=== PATIENT | male | born 1960 | race Caucasian/White ===

== ENCOUNTER 2019-06-26 05:49 | Observation (INO) ==
--- NOTE | 2019-06-25 11:19 | Anesthesiology Consultation ---
Date of Service June 25, 2019 Assessment & Plan (1) Encounter for pre-operative examination: Chart Review Chart Review: Pending: Refer to Additional Notes / Consult section and Patient NOT seen in Pre Admission Testing awaiting results of outside lab testing Consults Requested none History Surgery Operation Date: 06/26/19 07:45 Proposed Procedures p C6-C7 Anterior Cervical Discectomy and Fusion, C5 Corpectomy, Spinal Cord Monitoring - Ricardo Alba, Height/Weight Height: 5 ft 10 in Weight: 83.461 kg Allergies Allergy/AdvReac Type Severity Reaction Status Date / Time No Known Allergies Allergy Verified 06/25/19 08:14 Medications Home Medications Medication Instructions Recorded Confirmed Last Taken aspirin 81 mg PO DAILY 06/25/19 06/25/19 Unknown atorvastatin 20 mg PO HS 06/25/19 06/25/19 Unknown empagliflozin [Jardiance] 10 mg PO DAILY 06/25/19 06/25/19 Unknown insulin detemir U-100 [Levemir 62 unit SUBCUT DAILY 06/25/19 06/25/19 Unknown U-100 Insulin] lisinopril 10 mg PO DAILY 06/25/19 06/25/19 Unknown semaglutide [Ozempic] 0.5 mg SUBCUT WK 06/25/19 06/25/19 Unknown Past Medical History Medical History Diabetes mellitus, type 2 Herniated disc, cervical Hyperlipidemia Hypertension Osteoarthritis Past Family History Family History Grandmother (Maternal) Family history of diabetes mellitus Past Surgical History Surgical History History of herniorrhaphy History of repair of rotator cuff LEFT History of shoulder surgery LEFT STOP BANG Total 3 Social History Smoking Status: Never smoker tobacco type: smokeless tobacco Do You Dip or Chew Tobacco: Yes Hx Alcohol Use: No Hx Substance Use: No substance use type: does not use Testing Electrocardiogram Date: 05/07/19 Findings: + NSR @ (72) inc rbbb Chest X-Ray Date: 05/07/19 Findings: + NAD
[2019-06-26] MEDS ORDERED: CEFAZOLIN 2000MG 2,000 MG/15 ML SYR IV SCH (06:00)
[2019-06-26] MEDS ORDERED: LR 15ML/HR IV SCH (06:00)
[2019-06-26] MEDS ORDERED: GABAPENTIN 600 MG DOSE PO SCH (06:00)
[2019-06-26] MEDS ORDERED: ACETAMINOPHEN 500 MG TAB PO SCH (06:00)
[2019-06-26] MEDS ORDERED: CeleBREX 200 MG CAP PO SCH (06:00)
[2019-06-26] MEDS ORDERED: MIDAZOLAM HCL 1 MG/ML 2ML VIAL ONE (06:44)
[2019-06-26] MEDS ORDERED: HYDROmorphone INJ 2 MG/ML SYR/VIAL ONE ×2 (06:44→08:45)
[2019-06-26] MEDS ORDERED: fentaNYL citrate 100 MCG/2 ML VIAL ONE ×6 (06:44→09:57)
[2019-06-26] MEDS ORDERED: PROPOFOL IV EMULSION 10 MG/ML 100 ML VIAL IV ONE ×2 (06:54→09:25)
[2019-06-26] MEDS ORDERED: BACITRACIN INJ 50,000 UNIT VIAL ONE (07:04)
[2019-06-26] MEDS ORDERED: ATROPINE SULFATE 0.1 MG/ML 10ML SYR IV PRN (07:14)
[2019-06-26] MEDS ORDERED: ePHEDrine sulfate 50 MG/ML AMP IV PRN (07:14)
[2019-06-26] MEDS ORDERED: ONDANSETRON INJ 2 MG/ML 2 ML VIAL IV PRN ×2 (07:14→11:35)
--- NOTE | 2019-06-26 07:30 | History & Physical Bridge Note ---
Date of Service June 26, 2019 History & Physical Bridge Note I have examined the patient, reviewed the History & Physical and in the interval since the performance of the History & Physical I have noted the following changes of clinical significance: no changes noted
--- NOTE | 2019-06-26 07:31 | History & Physical Report ---
Date of Service June 26, 2019 Assessment & Plan (1) Cervical stenosis of spinal canal: Anterior cervical discectomy and fusion C6-7 corpectomy C5 Present on Admission?: Yes History of Present Illness Chief Complaint: Neck and arm pain Primary Care Provider: Sonam Miller DO This is a 59-year-old male who presents with chronic persistent neck and arm pain. After failing extensive course of nonoperative care is here for surgical intervention. Allergies Allergy/AdvReac Type Severity Reaction Status Date / Time No Known Allergies Allergy Verified 06/26/19 06:13 Home Medications Home Medications Medication Instructions Recorded Confirmed Type aspirin 81 mg PO DAILY 06/25/19 06/26/19 History atorvastatin 20 mg PO HS 06/25/19 06/26/19 History empagliflozin [Jardiance] 10 mg PO DAILY 06/25/19 06/26/19 History insulin detemir U-100 [Levemir 62 unit SUBCUT DAILY 06/25/19 06/26/19 History U-100 Insulin] lisinopril 10 mg PO DAILY 06/25/19 06/26/19 History semaglutide [Ozempic] 0.5 mg SUBCUT WK 06/25/19 06/26/19 History Past Med/Surg History Medical History Diabetes mellitus, type 2 Herniated disc, cervical Hyperlipidemia Hypertension Osteoarthritis Surgical History History of herniorrhaphy History of repair of rotator cuff LEFT History of shoulder surgery LEFT Family History Grandmother (Maternal) Family history of diabetes mellitus Social History Preferred Language: Telugu Communication Ability: Effective Hearing Examiner Required: No Beliefs That Will Affect Care: None Current Living Situation: Spouse Other Information That Helps Us Care for You: No Feels Safe at Home: Yes Safety Concerns: Feels Safe At This Time Smoking Status: Never smoker Tobacco Type: smokeless tobacco ; Do You Dip or Chew Tobacco: Yes ; Second Hand Exposure: No ; Tobacco Cessation Education Requested by Patient: No Hx Alcohol Use: No Hx Substance Use: No Physical Exam Physical Exam: Patient is alert and oriented neurologically intact. Results & Data Vital Signs (Past 12 Hours) Vital Signs Temp Pulse Resp BP Pulse Ox 06/26/19 06:24 36.5 C 83 20 148/86 H 97
[2019-06-26] MEDS ORDERED: SODIUM CHLORIDE 0.9% INJ 10 ML VIAL ONE (08:19)
[2019-06-26] MEDS ORDERED: NEOSTIGMINE METHYLSULFATE 1 MG/ML 10ML VIAL ONE (08:47)
[2019-06-26] MEDS ORDERED: PROPOFOL IV EMULSION 10 MG/ML 20 ML VIAL IV ONE (08:47)
[2019-06-26] MEDS ORDERED: ONDANSETRON INJ 2 MG/ML 2 ML VIAL ONE (08:47)
[2019-06-26] MEDS ORDERED: PHENYLEPHRINE 100MCG/ML 5ML SYR ONE (08:47)
[2019-06-26] MEDS ORDERED: METOCLOPRAMIDE HCL INJ 5 MG/ML 2 ML VIAL ONE (08:47)
[2019-06-26] MEDS ORDERED: LIDOCAINE HCL 2% 2 ML VIAL/AMP(20MG/ML) INFIL ONE (08:47)
[2019-06-26] MEDS ORDERED: DEXAMETHASONE SOD INJ 4 MG/ML VIAL ONE (08:47)
[2019-06-26] MEDS ORDERED: GLYCOPYRROLATE 0.2 MG/ML VIAL ONE (08:47)
[2019-06-26] MEDS ORDERED: ROCURONIUM BROMIDE 10 MG/ML 5 ML VIAL ONE ×3 (08:47→09:32)
[2019-06-26] MEDS ORDERED: ePHEDrine sulfate 50 MG/ML SYR ONE (09:47)
[2019-06-26] MEDS ORDERED: FLOSEAL HEMOSTATIC MATRIX 5ML TOP ONE (09:52)
--- NOTE | 2019-06-26 09:57 | Operative Report ---
Post Operative Report Pre & Post Diagnosis Operation Date: 06/26/19 07:45 Pre-Op Diagnosis: Cervical spinal stenosis with myeloradiculopathy Post-Op Diagnosis: Same I identified the patient and participated in the time-out.: Yes Procedure Operation Date: 06/26/19 07:45 Actual Procedures #1 anterior cervical corpectomy with bilateral foraminotomies C5. #2 anterior cervical arthrodesis C6-C7. #3 anterior cervical arthrodesis C4-C6 and C6-C7. #4 placement of peek cage 23 mm in height at C4-C6. 8 mm in height at C6-C7. #5 placement locally harvested morselized autograft from combined with DBM and interbody cages. #6 placement of caldwell plate and screws from C4-C7. Surgeon Ricardo Alba, Line Rider Nadia Valenzuela Estimated Blood Loss 20 Findings Consistent with Post-Op Diagnosis Specimens None Indications This is a 59-year-old male who presents with above-mentioned diagnosis after failing course of nonoperative care is here for surgical intervention. Description of Procedure Patient was met with identified and informed consent obtained. Patient was then taken to the operative suite underwent intubation placed in a prone position the Asad table on top of the Ethan frame. All bony prominences well-padded eyes inspected to ensure no external pressure placed upon the peer at this point the anterior cervical spine was prepped and draped in normal sterile fashion. The assistance of fluoroscopy identified the C5-6 disc space and a transverse incision was placed along the right anterior aspect of the cervical spine overlying this region. Sharp dissection with the assistance of bipolar electrocautery performed on January exposing the anterior cervical spine from C4- C7. Self-retaining retractor was then placed. Then performed a complete discectomy of C4-5 out to the uncovertebral joints bilaterally followed by C5-6. [place] distracting pins were then placed in C4 and C6 to distract across the see 5 vertebral body. A complete corpectomy was then performed including removal of all posterior annular fibers longitudinal ligament bilateral foraminotomies. Endplates were then burred to subcortical bleeding bone and a 23 mm peek cage filled with locally harvested morselized autograft and DBM tapped in position. Then proceeded to C6-7. Again complete discectomy performed out to the uncovertebral joints bilaterally. [place] distracting pins again utilized. I removed all posterior annular fibers longitudinal ligament bilateral foraminotomies performed. Endplates then burred to subcortical bleeding bone and an 8 mm peek cage filled with locally harvested bone graft and DBM tapped in position. Distraction apparatus was removed all anterior osteophytes burred with smooth cortical surface and a caldwell plate and screws applied with the assistance of fluoroscopy. The incision was then copiously irrigated explored to ensure no damage to surrounding structures remaining bleeding. A 15 round AILYN drain inserted. The incision was then closed with 1 Vicryl in the fascia 2-0 Vicryl subcutaneous and 4 Monocryl for final skin closure. Steri-Strip sterile dressings placed. Patient awakened taken to PACU stable condition. Please note Nadia Valenzuela present throughout the entire procedure involved the patient positioning complex portions of the surgery and final skin closure. Lastly spinal cord monitoring was utilized that procedure no changes noted. I attest to the content of the Intraoperative Record and any orders documented therein. Any exceptions are noted below.
[2019-06-26] MEDS: fentaNYL citrate 100 MCG/2 ML VIAL IV PRN ×3 (10:37→10:47)
--- NOTE | 2019-06-26 10:45 | Anesthesiology Progress Note ---
Date of Service June 26, 2019 Anesthesia Post Procedure Vital Signs Vital Signs: Temp Pulse Pulse Resp BP Pulse Ox 06/26/19 10:40 79 17 117/71 99 06/26/19 10:30 76 12 112/71 98 06/26/19 10:20 82 16 109/68 99 06/26/19 10:10 36.1 C L 84 12 113/69 100 06/26/19 06:24 36.5 C 83 20 148/86 H 97 Pain Intensity Neck: Pain Intensity: 6 Transfer of Care Handoff Completed per policy Notes Mental Status: alert / awake / arousable and participated in evaluation Patient Amnestic to Procedure: Yes Nausea / Vomiting: adequately controlled Pain: adequately controlled Airway Patency, RR, SpO2: stable & adequate BP & HR: stable & adequate Hydration State: stable & adequate Anesthetic Complications: no major complications apparent and Pt Satisfied with anesthetic care
[2019-06-26] MEDS ORDERED: TRAMADOL HCL 50 MG TABLET PO PRN (11:35)
[2019-06-26] MEDS ORDERED: METOCLOPRAMIDE HCL INJ 5 MG/ML 2 ML VIAL IV PRN (11:35)
[2019-06-26] MEDS ORDERED: LORazepam 0.5 MG/1 ML VIAL IV PRN (11:35)
[2019-06-26] MEDS ORDERED: OXYCODONE HCL IR 5 MG TAB (IMMEDIATE RELEASE) PO PRN (11:35)
[2019-06-26] MEDS ORDERED: MAGNESIUM HYDROXIDE SUSP 30 ML UDC PO PRN (11:35)
[2019-06-26] MEDS ORDERED: LORazepam 0.5 MG TAB PO PRN (11:35)
[2019-06-26] MEDS ORDERED: FAMOTIDINE 20 MG TAB PO PRN (11:35)
[2019-06-26] MEDS ORDERED: SOD PHOSPHATE/SOD BIPHOSPHATE ENEMA 132 ML BTL PR PRN (11:35)
[2019-06-26] MEDS ORDERED: DO NOT ADMINISTER FLU VACCINE PRN (11:35)
[2019-06-26] MEDS ORDERED: HYDROmorphone INJ 1 MG/ML SYRINGE IV PRN (11:35)
[2019-06-26] MEDS ORDERED: PROMETHAZINE HCL 12.5 MG in SODIUM CHLORIDE 0.9% 50 ML IV PRN (11:35)
[2019-06-26] MEDS ORDERED: DO NOT ADMINISTER PNEUMOCOCCAL VACCINE PRN (11:35)
[2019-06-26] MEDS ORDERED: NALOXONE HCL 0.4 MG/1 ML VIAL/CARP IV PRN (11:35)
[2019-06-26] MEDS ORDERED: NON-FORMULARY MEDICATION (Semaglutide [Ozempic] 0.5 MG) SQ SCH (11:35)
[2019-06-26] MEDS ORDERED: HYDROmorphone INJ 0.5 MG/0.5 ML SYR IV PRN (11:35)
[2019-06-26] MEDS ORDERED: ALUMINUM/MAGNESIUM SUSP 30 ML UDC PO PRN (11:35)
[2019-06-26] MEDS ORDERED: ONDANSETRON 4 MG OD TAB PO PRN (11:35)
[2019-06-26] MEDS ORDERED: RACEPINEPHRINE 2.25% NEBU SOLN 0.5 ML VIAL INH PRN (11:35)
[2019-06-26] MEDS ORDERED: ACETAMINOPHEN 500 MG TAB PO PRN (11:35)
[2019-06-26] MEDS ORDERED: ACETAMINOPHEN 1,000 MG/100 ML VIAL IV PRN (11:35)
[2019-06-26] MEDS ORDERED: DEXAMETHASONE SOD PHOSPHATE 8 MG in SYRINGE 0 ML IV PRN (11:35)
--- NOTE | 2019-06-26 11:37 | Fluoroscopy Report ---
FL cervical 2-3V CLINICAL HISTORY: ACDF C6-C7 CORPECTOMY C5 COMPARISON STUDY: None FLUOROSCOPY TIME: 11 seconds. NUMBER OF FLUOROSCOPIC IMAGES: 3 FINDINGS: Intraoperative fluoroscopic spot images reveal postsurgical changes of a C5 corpectomy, and C6-7 discectomy and interbody fusion. There is anterior metallic plate with screws at the C4, C6 and C7 levels. IMPRESSION: Intraoperative fluoroscopic spot images obtained during a C5 corpectomy and anterior cer vical discectomy and fusion at the C6-7 level. Electronically signed by: Brodie Higgins M.D. 06/26/2019 11:36 AM
[2019-06-26] MEDS ORDERED: PHARMACY GLYCEMIC MGMT CONSULT PRN (12:14)
[2019-06-26] MEDS ORDERED: INSULIN DETEMIR FLEXPEN/FLEX TOUCH 100 UNITS/ML 3ML SC ONE ×2 (12:30→21:00)
[2019-06-26] MEDS ORDERED: DEXTROSE 50% 50 ML SYRINGE IV PRN (12:30)
[2019-06-26] MEDS ORDERED: GLUCOSE 40% GEL 15 GM TUBE PO PRN (12:30)
[2019-06-26] MEDS ORDERED: GLUCOSE 10 TABS/TUBE PO PRN (12:30)
[2019-06-26] MEDS ORDERED: GLUCAGON FOR INJ 1 MG VIAL IM PRN (12:30)
[2019-06-26] MEDS: SODIUM CHLORIDE 0.9% 1000ML 1,000 ML IV SCH ×2 (12:39→21:24)
[2019-06-26] MEDS: INSULIN ASPART 100 UNITS/ML 3 ML PEN SC SCH ×3 (14:14→21:17)
--- NOTE | 2019-06-26 15:24 | Pharmacy Report ---
Glycemic Control Consultation - Date of Service June 26, 2019 - Scope Scope: Glycemic Pharmacist consulted by Dr Alba on 06/26/19 for glycemic control and to write orders per [facility] inpatient glycemic control protocol - Objective Weight: 80.6 kg Accuchecks BSG (last 24hrs): 06/26/19 06/26/19 06/26/19 06:10 10:12 12:05 POC Glucose 109 H 169 H 220 H - Recent Pertinent Medications Outpatient Anti-diabetic Regimen: * Insulin detemir 62 units daily, Ozempic 0.5 mg SC weekly on , Jardiance 10 mg PO daily, and metformin XR 1000 mg PO before lunch, and 1500 mg PO before dinner (patient reports non-compliance with this medication) * A1c pending for tomorrow * Patient follows with custodial laborer in [place] (Dr. Martinez) Risk Factors for Insulin Resistance: * Steroids: Dexamethasone 12 mg IV intraoperatively * Diet: T2DM * Surgery: POD #0 s/p cervical discectomy/fusion - Assessment & Plan Assessment & Plan: ASSESSMENT: * MIRLANDE is a 59 year old male POD #0 s/p cervical discectomy/fusion * Patient received 12 mg of IV dexamethasone intraoperatively * BSG postoperatively was 220 mg/dL PLAN FOR INPATIENT GLYCEMIC CONTROL: * Holding outpatient anti-diabetic medications while inpatient * Will utilize SC basal/bolus insulin, which is recommended for inpatient gl ycemic management * Basal insulin * Lantus 75 units SQ given following surgery to account for daily dose plus 20% increase due to dexamethasone * Lantus scale for this evening * -0 units if BSG 140 mg/dL or less * -10 units for BSG 141-199 mg/dL * -20 units if BSG 200 mg/dL or above * Bolus insulin * NovoLog per scale ACHS or Q6hrs while NPO * Goal Range: Low 110 mg/dL - High 140 mg/dL * Correction Factor: 20 mg/dL/unit * Nutritional / Prandial insulin per carb ratio of 1 unit per 7 grams CHO consumed * Overnight checks at 00,04 added with same parameters * Please note that the plan above was derived based on current level of insulin resistance and hospital stress. These recommendations are appropriate for inpatient admission only. Plan of care upon discharge will need to be reassessed to avoid potential outpatient hypo/hyperglycemia. Thank you.
[2019-06-26] MEDS: CEFAZOLIN 2000MG 2,000 MG/15 ML SYR IV SCH (16:37)
[2019-06-26] MEDS: ATORVASTATIN 20 MG TAB PO SCH (21:06)
[2019-06-26] MEDS: DOCUSATE SODIUM/SENNA 50/8.6MG TAB PO SCH (21:06)
[2019-06-27] MEDS: INSULIN ASPART 100 UNITS/ML 3 ML PEN SC SCH ×6 (00:49→21:27)
[2019-06-27] MEDS: CEFAZOLIN 2000MG 2,000 MG/15 ML SYR IV SCH (00:49)
[2019-06-27] MEDS: CARBOHYDRATES FOR HYPOGLYCEMIA PO PRN ×2 (00:50→01:30)
[2019-06-27 06:09] LABS: Estimated Average Glucose 183 mg/dl
[2019-06-27] MEDS: SODIUM CHLORIDE 0.9% 1000ML 1,000 ML IV SCH (07:27)
[2019-06-27] MEDS: LISINOPRIL 10 MG TAB PO SCH (08:37)
[2019-06-27] MEDS: ASPIRIN 81 MG ECTAB PO SCH (08:37)
[2019-06-27] MEDS ORDERED: INSULIN DETEMIR FLEXPEN/FLEX TOUCH 100 UNITS/ML 3ML SC ONE ×2 (09:00→21:00)
[2019-06-27] MEDS ORDERED: NON-FORMULARY MEDICATION (Empagliflozin [Jardiance] 10 MG) PO SCH (09:00)
[2019-06-27] MEDS: POLYETHYLENE (MIRALAX) 17 GM PACK PO SCH ×2 (09:18→12:57)
[2019-06-27] MEDS ORDERED: DEXAMETHASONE SOD PHOSPHATE 10 MG in SYRINGE 0 ML IV STA (10:21)
--- NOTE | 2019-06-27 10:23 | Orthopedic Progress Note ---
Date of Service June 27, 2019 Assessment & Plan (1) Cervical stenosis of spinal canal: At this time his AILYN drain is still putting out over 20 cc of an 8-hour shift. I would like to maintain the drain until tomorrow morning. We will give him 1 more dose of Decadron to help with his swallowing. Will most likely discharge in a.m. Present on Admission?: Yes Subjective Patient's arm symptoms are improving. He is swallowing well. No hoarseness. Physical Exam Physical Exam: On exam the strength is intact. He appears comfortable. Results & Data Vital Signs (Past 12 Hours) Vital Signs Temp Pulse Resp BP Pulse Ox Pulse Ox 06/27/19 08:30 36.6 C 78 16 129/75 98 06/27/19 07:33 79 14 96 06/27/19 06:30 36.8 C 90 14 137/77 94 06/27/19 04:30 36.4 C L 76 14 151/85 H 96 06/27/19 03:38 73 16 96 06/27/19 02:30 36.3 C L 75 14 143/80 H 97 06/27/19 00:39 88 14 123/68 94 06/27/19 00:05 97 06/26/19 23:02 76 16 93 06/26/19 22:38 36.6 C 79 18 132/66 97
--- NOTE | 2019-06-27 11:16 | Pharmacy Report ---
Pharmacy Glycemic Short Note 2 - Date of Service June 27, 2019 - Glycemic Short BSG Results (Last 24 hours): 06/26/19 06/26/19 06/26/19 12:05 17:26 20:55 POC Glucose 220 H 117 H 118 H 06/27/19 06/27/19 06/27/19 00:43 00:45 01:16 POC Glucose 55 L* 56 L* 69 L* 06/27/19 06/27/19 06/27/19 01:40 04:10 08:01 POC Glucose 115 H 99 93 Outpatient Anti-diabetic Regimen: * Insulin detemir 62 units daily, Ozempic 0.5 mg SC weekly on , Jardiance 10 mg PO daily, and metformin XR 1000 mg PO before lunch, and 1500 mg PO before dinner (patient reports non-compliance with this medication) * A1c: 8% (06/27/19) * Patient follows with mule developer in [place] (Dr. Martinez) * Probable discharge for tomorrow ASSESSMENT: * FlakitaG is a 59 year old male POD #1 s/p cervical discectomy/fusion * Patient received 12 mg of IV dexamethasone intraoperatively and will receive 2.5 mg IV this morning * Levemir 75 units SQ given following surgery to account for daily dose plus 20% increase due to dexamethasone * Patient had a low of 56 mg/dL at midnight (BSGs ranging 56-220 mg/dL yesterday) * Fasting BSG this morning was 93 mg/dL and 80 mg/dL at lunch * Patient received 99 units of insulin yesterday (75 units of which were basal) PLAN FOR INPATIENT GLYCEMIC CONTROL: * Hold outpatient oral diabetes medications * Basal insulin * Levemir 40 units given this morning (40% reduction from home dose based on low observed overnight) * Will maintain same Levemir scale from last night * -0 units if BSG 140 mg/dL or less * -10 units for BSG 141-199 mg/dL * -20 units if BSG 200 mg/dL or above * Reassess basal needs in the AM * Bolus insulin - loosen parameters * NovoLog per scale ACHS or Q6hrs while NPO * Goal Range: Low 110 mg/dL - High 140 mg/dL * Correction Factor: 30 mg/dL/unit * Nutritional / Prandial insulin per carb ratio of 1 unit per 10 grams CHO consumed PLAN FOR DISCHARGE: * Patient is currently not controlled with an A1c of 8% - goal should be less than 7% based on age * Recommend to resume outpatient regimen on discharge, continuing f/u with outpatient mule developer * Encouraged compliance with current regimen (non-compliance noted especially with oral medications)
[2019-06-27] MEDS ORDERED: Nursing to Pharmacy Communication ONE (16:43)
[2019-06-27] MEDS: ATORVASTATIN 20 MG TAB PO SCH (20:12)
[2019-06-27] MEDS: DOCUSATE SODIUM/SENNA 50/8.6MG TAB PO SCH (20:12)
[2019-06-28] MEDS ORDERED: INSULIN ASPART 100 UNITS/ML 3 ML PEN SC SCH
[2019-06-28] MEDS: ASPIRIN 81 MG ECTAB PO SCH (08:16)
[2019-06-28] MEDS: LISINOPRIL 10 MG TAB PO SCH (08:16)
[2019-06-28] MEDS: INSULIN ASPART 100 UNITS/ML 3 ML PEN SC SCH (08:42)
--- NOTE | 2019-06-28 09:26 | Pharmacy Report ---
Pharmacy Glycemic Short Note 2 - Date of Service June 28, 2019 - Glycemic Short BSG Results (Last 24 hours): 06/27/19 06/27/19 06/27/19 12:14 17:07 20:30 POC Glucose 80 168 H 204 H 06/27/19 06/28/19 06/28/19 23:59 03:57 08:11 POC Glucose 134 H 82 95 Outpatient Anti-diabetic Regimen: * Insulin detemir 62 units daily, Ozempic 0.5 mg SC weekly on , Jardiance 10 mg PO daily, and metformin XR 1000 mg PO before lunch, and 1500 mg PO before dinner (patient reports non-compliance with this medication) * A1c: 8% (06/27/19) * Patient follows with charge histotechnologist in [place] (Dr. Martinez) * Discharge uncertain at this time ASSESSMENT: * MIRLANDE is a 59 year old male POD #2 s/p cervical discectomy/fusion * Fasting BSG this morning was 95 mg/dL, lunch BSG 157 mg/dL * Patient received 77 units of insulin yesterday (60 units of which were basal) * BSGs ranging 80-204 mg/dL yesterday PLAN FOR INPATIENT GLYCEMIC CONTROL: * Hold outpatient oral diabetes medications * Basal insulin * Levemir 62 units x 1 at lunch (prior to discharge today) * Bolus insulin - breakfast, hold for lunch and just give Levemir (discharge today) * NovoLog per scale ACHS or Q6hrs while NPO * Goal Range: Low 120 mg/dL - High 160 mg/dL * Correction Factor: 30 mg/dL/unit * Nutritional / Prandial insulin per carb ratio of 1 unit per 10 grams CHO consumed PLAN FOR DISCHARGE: * Patient is currently not controlled with an A1c of 8% - goal should be less than 7% based on age * Patient missed home Ozempic yesterday, so instructed patient to take this evening and then go back on regular schedule next week * Recommend to resume outpatient regimen on discharge, continuing f/u with outpatient charge histotechnologist * Encouraged compliance with current regimen (non-compliance noted especially with oral medications)
[2019-06-28] MEDS ORDERED: BISACODYL 10 MG SUPP PR PRN (09:59)
--- NOTE | 2019-06-28 10:04 | Discharge Summary ---
Date of Service June 28, 2019 Admission HPI Per Admitting Provider This is a 59-year-old male who presents with chronic persistent neck and arm pain. After failing extensive course of nonoperative care is here for surgical intervention. Principal Diagnosis Cervical spinal stenosis with myeloradiculopathy Discharge Data Allergies Allergy/AdvReac Type Severity Reaction Status Date / Time No Known Allergies Allergy Verified 06/26/19 06:13 Procedures Performed Operation Date: 06/26/19 07:45 Actual Procedures p C6-C7 Anterior Cervical Discectomy and Fusion, C5 Corpectomy, Spinal Cord Monitoring - Ricardo Alba DO Ordered Studies 06/26/19 07:45 FL cervical 2-3V Routine FL fluoroscopy <1hr Routine Hospital Course (1) Cervical stenosis of spinal canal: Patient underwent anterior cervical corpectomy and fusion tolerated as well as taken to the orthopedic for postoperative. Postop day 1 arm symptoms were improved swallowing well. AILYN drain still quite significant subsequently elected to maintain the AILYN drain another 24 hours. Postop day #2 is eating regular foods. AILYN drain decreasing appropriately. Arm symptoms improved strength intact subsequently discharged home. Discharge orders instructions from the chart for further review. Total Time Total Time Spent Total Time Spent (In Minutes): 20 minutes Discharge Plan Discharge Items Patient Disposition: Home - Self-Care Reason For Visit: Spinal Stenosis, Cervical Region Discharge Diagnosis: Cervical spinal stenosis with myeloradiculopathy Activity: As commented below Non-emergency contact: Primary Care Provider Call non-emergency contact if: you have any medication questions Follow-up/Referrals: Sonam Miller DO [Primary Care Provider] - Diet: Regular Addtl Attending Provider Instructions: ACTIVITY RECOMMENDATIONS: SELF CARE INSTRUCTIONS AFTER CERVICAL FUSIONS 1. No smoking. Smoking drastically decreases the chance of a solid fusion. 2. No bending, lifting more than 5 pounds, or twisting (roll like a log when turning in bed). 3. You may shower 3 days after surgery. Thoroughly dry wound. Do not soak in the tub. 4. Cervical collar: Must be worn at all times including sleeping. You may remove the brace only to bath, eat and if you are sitting in a recliner. 5. Please walk as much as you can for exercise. Gradually increase the distance that you walk as your endurance increases. SPECIAL CARE INSTRUCTIONS: VERY IMPORTANT TO READ AND REVIEW A. Do not take any anti-inflammatory medications (i.e. Indocin, Advil, Aspirin, Naprosyn, Aleve, Motrin, etc.) as these may inhibit the chance of a solid fusion. Tylenol is okay to take. B. Your surgical incision has been closed with a cosmetic suture under the skin that will dissolve in about 6 weeks. In 14 days, you can use a pair of clean scissors and cut the suture that is left outside of the skin at the ends of your incision. C. Complications are uncommon, but please contact us if you have any signs or symptoms of: 1. wound infection (fever higher than 102.5 degrees F, redness, separation of wound, drainage, or increasing pain from the incision) 2. blood clots in legs (pain, swelling, redness and warmth in legs) 3. urinary tract infection (fever higher than 102.5 degrees, burning upon urination or increased frequency of urination) 4. nerve problems (inability to walk on your toes or heels, numbness, loss of bowel or bladder control) 5. any other symptoms that concern you. D. Please call the office at if you have any concerns or questions about your operation or recovery. MANAGING PAIN AFTER SPINAL SURGERY 1. Narcotic medication is intended for short-term use and will be provided for surgical pain. Surgical pain usually lasts for a period of 4-6 weeks. Narcotic medication includes Percocet, Vicodin, Darvocet, Tylenol #3 or Lortab. 2. Longer-term pain is more appropriately treated with non-narcotic medication such as Tylenol ES. 3. Muscle spasm is not appropriately treated with narcotics. Muscle relaxers such as Soma, Flexeril or Skelaxin can be used along with Tylenol ES. 4. Remember that we all live with some "aches and pains". This is not unusual or uncommon after an injury or as we get older. 5. We will provide appropriate medication within the normal guidelines of their prescribed use. We will also be very cautious and aware of potential abuse and extended duration of patients' medication needs. 6. Please allow 2-3 days to process refills. Prescriptions will not be mailed but must be picked up at the office. FOLLOW UP VISIT: Keep your scheduled follow-up appointment. Any questions, please call the office at . Pending Studies at Discharge: No Stand-Alone Forms: My [facility], Opioid Pain Management, Smoking Cessation Medications and DC Order Prescriptions: New tramadol 50 mg tablet 50 mg PO Q6H PRN (Reason: pain, moderate) Qty: 30 RF: 0 oxycodone 5 mg tablet 5 mg PO Q6H PRN (Reason: pain, severe) Qty: 30 RF: 0 Continued atorvastatin 20 mg Tablet 20 mg PO HS RF: 0 aspirin 81 mg Tablet,Delayed Release (Dr/Ec) 81 mg PO DAILY RF: 0 lisinopril 10 mg Tablet 10 mg PO DAILY RF: 0 Levemir U-100 Insulin 100 unit/mL Solution 62 unit SUBCUT DAILY RF: 0 Jardiance 10 mg Tablet 10 mg PO DAILY RF: 0 Ozempic 0.25 mg or 0.5 mg(2 mg/1.5 mL) Pen Injector 0.5 mg SUBCUT WK RF: 0 metformin [Glucophage XR] 500 mg Tablet Extended Release 24 Hr 1,000 mg PO QDL RF: 0 metformin [Glucophage XR] 500 mg Tablet Extended Release 24 Hr 1,500 mg PO DIRECTED RF: 0 Discharge Orders: Discharge Order (Routine); Ordered 06/28/19 Ordered By: Ricardo Olivares/Other Patient Handouts: Surgery Prevent DVT After Admission Data Admit Date/Time: 06/26/19 10:02 Attending Provider: Ricardo Alba Admit Provider: Ricardo Alba Primary Care Provider: Sonam Miller Other Interventions: Discharge Summary Assessment (RN) Last Done: 06/28/19 09:57
[2019-06-28] MEDS ORDERED: INSULIN DETEMIR FLEXPEN/FLEX TOUCH 100 UNITS/ML 3ML SC ONE (13:00)
== END 2019-06-28 14:14 | disposition home or self-care (01) ==
LOC: 3E 05:49 → ASU 05:49